=== PATIENT | female | born 1985 | race American Indian/Alaskan Native ===

== ENCOUNTER 2024-09-25 13:27 | Emergency (ER) | payer BC ==
[~2024-09-25] VITALS: Ht 167.6 cm; Wt 61.2 kg
[~2024-09-25 13:27] MED LIST: HYDR1TAB94 PO; IBUP800 PO; ONDA4ODT MM; Robaxin750 MG PO
[2024-09-25 13:51] VITALS: BP 146/95
== END 2024-09-25 15:35 | disposition home or self-care (01) ==
LOC: ER 13:27
DX: S02.2XXA Fracture of nasal bones, initial encounter for closed fracture (principal); W55.32XA Struck by other hoof stock, initial encounter
CPT/HCPCS: 70486; 99283-25